=== PATIENT | female | born 1970 ===

== ENCOUNTER → 2022-04-22 | Day surgery (SDC) | payer OTHER ==
[~2022-04-22] MED LIST: AZITHROMYCIN250 MG PO; COLLAGEN PO; CYCLOBENZAPRINE10 MG PO; DICYCLOMINE HCL10 MG PO; FAMOTIDINE40 MG PO; LEVOTHYROXINE50 MCG PO; LIDOCAINE HCL 2% LOCAL INJ 5 ML SDV VIAL INJ ONE; LOSARTAN POTASS25 MG PO; MAGNESIUM PO; POVIDONE IODINE 0.05% 0.05 % ML PO ONE; PROPOFOL IV EMULSION 50 ML IV ONE; VISION VITAMIN1 EACH PO; VITAMIN D310 MCG PO; [UNRECOGNIZED DRUG - MIXTURE] PO
[2022-04-22 16:15] VITALS: BP 112/72
== END | disposition home or self-care (01) ==
LOC: OR 14:28
PROVIDERS: ATTEND Internal Medicine Gastroenterology
DX: Z12.11 Encounter for screening for malignant neoplasm of colon (principal); K29.50 Unspecified chronic gastritis without bleeding; K63.3 Ulcer of intestine; K44.9 Diaphragmatic hernia without obstruction or gangrene; K21.9 Gastro-esophageal reflux disease without esophagitis; K64.8 Other hemorrhoids; G47.33 Obstructive sleep apnea (adult) (pediatric); E03.9 Hypothyroidism, unspecified; I10 Essential (primary) hypertension; F32.A Depression, unspecified; Z01.810 Encounter for preprocedural cardiovascular examination; Z79.899 Other long term (current) drug therapy; Z68.31 Body mass index [BMI] 31.0-31.9, adult
CPT/HCPCS: 43239; 45380; 93005; J2001; J2704; 45378